=== PATIENT | female | born 1950 | race Two or more races ===

== ENCOUNTER 2023-01-25 12:40 | Inpatient (IN) | payer OTHER ==
[~2023-01-25] VITALS: Ht 167.6 cm; Wt 95.3 kg
[2023-01-25] MEDS ORDERED: METFORMIN HCL500 M3 PO (12:52)
[2023-01-25] MEDS ORDERED: HYZAAR 100-12.1 EACH PO (12:53)
== END 2023-02-05 17:15 | disposition home or self-care (01) | DRG 177 ==
LOC: ER 12:40 → ICU-2 19:59 → SEC-K 01-27 20:50 → MEDJ 01-28 16:22
PROVIDERS: ADMIT Internal Medicine; ATTEND Internal Medicine
PROC: BW24ZZZ Computerized Tomography (CT Scan) of Chest and Abdomen (ICD-10-PCS; 2023-01-25)
PROC: 3E0F7GC Introduction of Other Therapeutic Substance into Respiratory Tract, Via Natural or Artificial Opening (ICD-10-PCS; 2023-01-25)
PROC: XW033E5 Introduction of Remdesivir Anti-infective into Peripheral Vein, Percutaneous Approach, New Technology Group 5 (ICD-10-PCS; principal; 2023-01-26)
PROC: 4A12X4Z Monitoring of Cardiac Electrical Activity, External Approach (ICD-10-PCS; 2023-01-28)
DX: U07.1 COVID-19 (principal); J12.82 Pneumonia due to coronavirus disease 2019; R09.02 Hypoxemia; I10 Essential (primary) hypertension; E11.9 Type 2 diabetes mellitus without complications; Z79.4 Long term (current) use of insulin; E66.9 Obesity, unspecified; Z68.33 Body mass index [BMI] 33.0-33.9, adult